=== PATIENT | female | born 1995 | race Caucasian/White ===

== ENCOUNTER 2018-05-31 09:35 | Emergency (ER) | payer OTHER, SELFPAY ==
[2018-05-31 09:36] VITALS: BP 109/68; PULSE 62; RESP 18; TEMP 36.6; O2SAT 100; BMI 25.8
--- NOTE | 2018-05-31 10:32 | ED.VISSUMM ---
- ER Visit Summary Date of Service: 05/31/18 Chief Complaint: Dog bite History of Present Illness: The patient is a 23 F who suffered a dog bite to her left leg 2 weeks ago. Patient lives in [place] and previous treatment has been performed there. Patient is in town visiting for the weekend and needs her rabies vaccine today. She states wound is healing well she has no complaints. Physical Examination: Vital signs are unremarkable. Patient sitting upright in bed no acute distress. Heart is regular rate and rhythm without murmur. Lung sounds are clear. Left lower extremity examination reveals a healing puncture wound to the left lower leg. No sign of secondary infection. Full range of motion is noted with strong distal pulses. Test Results: [] Emergency Department Course and Treatment: Patient be given rabies vaccine and discharged home to continue her course. Treatment Plan: [] Disposition: Discharge Impression: Rabies vaccine This note was generated with [employer] dictation software. It may contain incorrect words, spelling, and punctuation that were not noted in review of the chart prior to signing ED Disposition - Plan for ED Patient: Chief Complaint: Bite Referrals: Lj Carrillo MD [Primary Care Provider] -
--- NOTE | 2018-05-31 10:34 | ED.DEP ---
ED Disposition - Plan for ED Patient: Disposition: Home or Assisted Living Chief Complaint: Bite Instructions: ED Bite Dog
[2018-05-31] MEDS: Rabies Vaccine,Human Diploid 2.5 UNITS Vial IM (11:08)
[2018-05-31 11:14] VITALS: BP 122/76; PULSE 63; RESP 14; O2SAT 96
[2018-05-31 11:43] VITALS: BP 118/76; PULSE 62; RESP 14; O2SAT 97
== END 2018-05-31 11:45 | disposition home or self-care (01) ==
LOC: ED 11:27
PROVIDERS: Emergency Provider Emergency Medicine
DX: Z23 Encounter for immunization (principal); S81.832D Puncture wound without foreign body, left lower leg, subsequent encounter; W54.0XXD Bitten by dog, subsequent encounter
CPT/HCPCS: 90675; 99282